=== PATIENT | male | born 1940 | race Caucasian/White ===

== ENCOUNTER 2022-05-05 01:40 | Outpatient (RCR) | payer MEDICARE, BC, SELFPAY ==
[2022-04-21] MEDS: Normal Saline Flush 10 ML SYR IVP (07:50)
[2022-04-21 08:18] LABS: Abs Immature Grans 0.01 10^3/uL (0.0-0.06); Absolute Basophil Count 0.05 10^3/uL (0.0-0.2); Absolute Eosinophil Count 0.28 10^3/uL (0.0-0.7); Absolute Lymphocyte Count 1.15 10^3/uL (1.2-3.4); Absolute Monocyte Count 0.38 10^3/uL (0.1-0.8); Absolute Neutrophil Count 3.74 10^3/uL (1.2-6.7); Basophils % 0.9; HCT 35.4 % (40.0-50.0); HGB 12.1 g/dL (13.5-17.5); Immature Grans % 0.2; Lymphocytes % 20.5; MCH 30.6 pg (27.0-33.0); MCHC 34.2 % (32.0-36.0); MCV 90 fL (80-95); MPV 10.6 fL (8.0-11.0); Monocytes % 6.8; Neutrophils % 66.6; Platelet Count 152 10^3/uL (130-400); RBC 3.95 10^6/uL (4.36-5.78); RDW 14.3 % (11.8-14.1); WBC 5.61 10^3/uL (4.4-10.8)
[2022-04-21 08:37] LABS: ALT 42 U/L (16-63); AST 22 U/L (15-37); Albumin 3.1 g/dL (3.4-5.0); Alkaline Phosphatase 231 U/L (46-116); Anion Gap 7.2 mmol/L (3-11); BUN 24 mg/dL (7-18); Bilirubin, Total 1.2 mg/dL (0.2-1.0); CO2 27.8 mmol/L (21.0-32.0); CREATININE 0.9 mg/dL (0.70-1.30); Calcium 8.5 mg/dL (8.5-10.1); Chloride 105 mmol/L (98-107); Glucose 179 mg/dL (74-106); Potassium 4.5 mmol/L (3.5-5.1); Sodium 140 mmol/L (136-145); Total Protein 6.4 g/dL (6.4-8.2)
[2022-04-23] MEDS: Heparin 500 UNITS/5 ML SYRINGE IV (11:00)
[2022-04-23] MEDS: Normal Saline Flush 10 ML SYR IVP (11:00)
[2022-04-24 13:58] LABS: CA 19-9 12 U/mL (<35)
[2022-05-05] MEDS: Normal Saline Flush 10 ML SYR IVP (07:41)
[2022-05-05 07:44] LABS: Abs Immature Grans 0.01 10^3/uL (0.0-0.06); Absolute Basophil Count 0.04 10^3/uL (0.0-0.2); Absolute Lymphocyte Count 0.94 10^3/uL (1.2-3.4); Absolute Monocyte Count 0.35 10^3/uL (0.1-0.8); Absolute Neutrophil Count 2.85 10^3/uL (1.2-6.7); Basophils % 0.9; Eosinophils % 4.6; HCT 33.8 % (40.0-50.0); HGB 11.5 g/dL (13.5-17.5); Immature Grans % 0.2; Lymphocytes % 21.4; MCH 30.7 pg (27.0-33.0); MCV 90 fL (80-95); MPV 9.5 fL (8.0-11.0); Neutrophils % 64.9; Platelet Count 143 10^3/uL (130-400); RBC 3.75 10^6/uL (4.36-5.78); RDW 13.5 % (11.8-14.1); RDW-SD 44.5 fL; WBC 4.39 10^3/uL (4.4-10.8)
[2022-05-05 08:01] LABS: ALT 45 U/L (16-63); AST 22 U/L (15-37); Albumin 3.2 g/dL (3.4-5.0); Alkaline Phosphatase 200 U/L (46-116); Anion Gap 8.9 mmol/L (3-11); BUN 23 mg/dL (7-18); Bilirubin, Total 0.9 mg/dL (0.2-1.0); CO2 24.1 mmol/L (21.0-32.0); Calcium 8.7 mg/dL (8.5-10.1); Chloride 108 mmol/L (98-107); Glucose 117 mg/dL (74-106); Potassium 4.2 mmol/L (3.5-5.1); Sodium 141 mmol/L (136-145); Total Protein 6.5 g/dL (6.4-8.2)
[2022-05-07] MEDS: Normal Saline Flush 10 ML SYR IVP (11:15)
[2022-05-07] MEDS: Heparin 500 UNITS/5 ML SYRINGE IV (11:15)
[2022-05-08 10:24] LABS: CA 19-9 8 U/mL (<35)
== END 2022-05-14 23:59 | disposition home or self-care (01) ==
LOC: INF 01:40
PROVIDERS: PCP Neuromusculoskeletal Medicine & OMM; Visit Provider Internal Medicine Hematology & Oncology
DX: C25.9 Malignant neoplasm of pancreas, unspecified (principal); Z45.2 Encounter for adjustment and management of vascular access device
CPT/HCPCS: 36415; 36591; 80053; 96523; 85025; 86301

== ENCOUNTER → 2022-06-02 09:07 | Outpatient (CLI) | payer MEDICARE, BC, SELFPAY ==
--- NOTE | 2022-06-02 | DI.US_ITS ---
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 DVT, M79.604. TECHNIQUE: Lower extremity venous ultrasound performed using grayscale, color-flow, and spectral Do ppler analysis. COMPARISON: No exams were available for comparison FINDINGS: The common femoral, femoral and popliteal veins demonstrate normal compressibility, augmentation, and color Doppler. The posterior tibial veins are patent. No saphenous vein thrombosis or other superfi cial venous thrombosis is seen. No hematoma or Eric's cyst is seen. IMPRESSION: Negative lower extremity ultrasound. No evidence of DVT. DATA REPOSITORY:
== END ==
PROVIDERS: PCP Neuromusculoskeletal Medicine & OMM; Visit Provider Internal Medicine Hematology & Oncology
DX: M79.604 Pain in right leg (principal)
CPT/HCPCS: 36591; 80053; 85025; 86301; 93971

== ENCOUNTER 2022-06-04 00:20 | Outpatient (RCR) | payer MEDICARE, BC, SELFPAY ==
[2022-05-19] MEDS: Normal Saline Flush 10 ML SYR IVP (08:05)
[2022-05-19 08:27] LABS: Abs Immature Grans 0.01 10^3/uL (0.0-0.06); Absolute Basophil Count 0.03 10^3/uL (0.0-0.2); Absolute Lymphocyte Count 1.03 10^3/uL (1.2-3.4); Absolute Monocyte Count 0.26 10^3/uL (0.1-0.8); Basophils % 1.6; Eosinophils % 5.4; HCT 31.7 % (40.0-50.0); HGB 11.1 g/dL (13.5-17.5); Immature Grans % 0.5; MCH 30.6 pg (27.0-33.0); MCV 87 fL (80-95); MPV 9.7 fL (8.0-11.0); Monocytes % 14.1; Neutrophils % 22.4; Platelet Count 145 10^3/uL (130-400); RBC 3.63 10^6/uL (4.36-5.78); RDW 13.2 % (11.8-14.1)
[2022-05-19 08:50] LABS: ALT 89 U/L (16-63); AST 42 U/L (15-37); Albumin 3.2 g/dL (3.4-5.0); Alkaline Phosphatase 266 U/L (46-116); Anion Gap 5.8 mmol/L (3-11); BUN 17 mg/dL (7-18); Bilirubin, Total 0.6 mg/dL (0.2-1.0); CO2 28.2 mmol/L (21.0-32.0); CREATININE 0.8 mg/dL (0.70-1.30); Calcium 8.1 mg/dL (8.5-10.1); Chloride 109 mmol/L (98-107); Glucose 131 mg/dL (74-106); Potassium 3.7 mmol/L (3.5-5.1); Sodium 143 mmol/L (136-145); Total Protein 6.3 g/dL (6.4-8.2); WBC 1.84 10^3/uL (4.4-10.8)
[2022-05-19 08:51] LABS: Absolute Neutrophil Count 0.41 10^3/uL (1.2-6.7)
[2022-05-19 09:03] LABS: Diff Comment Agrees w/ Instrument; Polychromasia Present
[2022-05-22 11:18] LABS: CA 19-9 <2 U/mL (<35)
[2022-06-02] MEDS: Normal Saline Flush 10 ML SYR IVP (07:41)
[2022-06-02 07:50] LABS: Abs Immature Grans 0.03 10^3/uL (0.0-0.06); Absolute Basophil Count 0.06 10^3/uL (0.0-0.2); Absolute Lymphocyte Count 1.29 10^3/uL (1.2-3.4); Absolute Monocyte Count 0.48 10^3/uL (0.1-0.8); Absolute Neutrophil Count 3.45 10^3/uL (1.2-6.7); Basophils % 1.1; Eosinophils % 3.6; HCT 34.3 % (40.0-50.0); HGB 11.3 g/dL (13.5-17.5); Immature Grans % 0.5; Lymphocytes % 23.4; MCH 30.2 pg (27.0-33.0); MCHC 32.9 % (32.0-36.0); MCV 92 fL (80-95); MPV 10.4 fL (8.0-11.0); Monocytes % 8.7; Neutrophils % 62.7; Platelet Count 191 10^3/uL (130-400); RBC 3.74 10^6/uL (4.36-5.78); RDW 13.6 % (11.8-14.1); RDW-SD 45.5 fL; WBC 5.51 10^3/uL (4.4-10.8)
[2022-06-02 08:04] LABS: ALT 52 U/L (16-63); AST 26 U/L (15-37); Alkaline Phosphatase 226 U/L (46-116); BUN 15 mg/dL (7-18); Bilirubin, Total 0.4 mg/dL (0.2-1.0); Chloride 109 mmol/L (98-107); Glucose 154 mg/dL (74-106); Sodium 143 mmol/L (136-145); Total Protein 6.1 g/dL (6.4-8.2)
[2022-06-04 10:10] VITALS: BP 142/55; PULSE 58; RESP 16; TEMP 36.1; O2SAT 97
[2022-06-04] MEDS: Heparin 500 UNITS/5 ML SYRINGE IV (10:15)
[2022-06-04] MEDS: Normal Saline Flush 10 ML SYR IVP (10:15)
[2022-06-05 12:09] LABS: CA 19-9 3 U/mL (<35)
== END 2022-06-14 23:59 | disposition home or self-care (01) ==
LOC: INF 00:20
PROVIDERS: PCP Neuromusculoskeletal Medicine & OMM; Visit Provider Internal Medicine Hematology & Oncology
DX: C25.9 Malignant neoplasm of pancreas, unspecified (principal); Z45.2 Encounter for adjustment and management of vascular access device
CPT/HCPCS: 36591; 80053; 96523; 85025; 86301

== ENCOUNTER 2022-06-18 04:27 | Outpatient (RCR) | payer MEDICARE, BC, SELFPAY ==
[2022-06-15 00:05] VITALS: BP 142/55; PULSE 58; RESP 16; TEMP 36.1
[2022-06-16] MEDS: Normal Saline Flush 10 ML SYR IVP (07:38)
[2022-06-16 07:43] LABS: Abs Immature Grans 0.03 10^3/uL (0.0-0.06); Absolute Basophil Count 0.06 10^3/uL (0.0-0.2); Absolute Eosinophil Count 0.35 10^3/uL (0.0-0.7); Absolute Lymphocyte Count 1.36 10^3/uL (1.2-3.4); Absolute Neutrophil Count 3.89 10^3/uL (1.2-6.7); Eosinophils % 5.7; HCT 36.3 % (40.0-50.0); HGB 12.2 g/dL (13.5-17.5); Immature Grans % 0.5; MCH 30.4 pg (27.0-33.0); MCHC 33.6 % (32.0-36.0); MCV 91 fL (80-95); MPV 10.1 fL (8.0-11.0); Monocytes % 8.1; Neutrophils % 62.7; Platelet Count 135 10^3/uL (130-400); RBC 4.01 10^6/uL (4.36-5.78); RDW 12.8 % (11.8-14.1); RDW-SD 41.9 fL; WBC 6.19 10^3/uL (4.4-10.8)
[2022-06-16 07:56] LABS: ALT 33 U/L (16-63); AST 18 U/L (15-37); Albumin 3.3 g/dL (3.4-5.0); Alkaline Phosphatase 169 U/L (46-116); Anion Gap 5.7 mmol/L (3-11); BUN 19 mg/dL (7-18); Bilirubin, Total 0.5 mg/dL (0.2-1.0); CO2 28.3 mmol/L (21.0-32.0); Calcium 8.5 mg/dL (8.5-10.1); Chloride 107 mmol/L (98-107); Estimated GFR 75.61 (mL/min/1.73m2); Glucose 124 mg/dL (74-106); Potassium 4.3 mmol/L (3.5-5.1); Sodium 141 mmol/L (136-145); Total Protein 6.7 g/dL (6.4-8.2)
[2022-06-18 09:23] VITALS: BP 127/54; PULSE 54; RESP 16; TEMP 36.3; O2SAT 95
[2022-06-18] MEDS: Normal Saline Flush 10 ML SYR IVP (09:26)
[2022-06-18] MEDS: Heparin 500 UNITS/5 ML SYRINGE IV (09:26)
[2022-06-26 14:36] LABS: CA 19-9 2 U/mL (<35)
== END 2022-07-14 23:59 | disposition home or self-care (01) ==
LOC: INF 04:27
PROVIDERS: PCP Neuromusculoskeletal Medicine & OMM; Visit Provider Internal Medicine Hematology & Oncology
DX: C25.9 Malignant neoplasm of pancreas, unspecified (principal); Z45.2 Encounter for adjustment and management of vascular access device
CPT/HCPCS: 36591; 80053; 96523; 85025; 86301

== ENCOUNTER 2022-09-01 00:59 | Outpatient (RCR) | payer MEDICARE, BC, SELFPAY ==
[2022-08-25] MEDS: Normal Saline Flush 10 ML SYR IVP (12:01)
[2022-08-25] MEDS: Heparin 500 UNITS/5 ML SYRINGE IV (12:02)
[2022-08-25 12:14] LABS: Abs Immature Grans 0.01 10^3/uL (0.0-0.06); Absolute Basophil Count 0.04 10^3/uL (0.0-0.2); Absolute Lymphocyte Count 1.12 10^3/uL (1.2-3.4); Absolute Monocyte Count 0.49 10^3/uL (0.1-0.8); Absolute Neutrophil Count 4.03 10^3/uL (1.2-6.7); Basophils % 0.7; Eosinophils % 1.7; HCT 34.9 % (40.0-50.0); HGB 11.4 g/dL (13.5-17.5); Immature Grans % 0.2; Lymphocytes % 19.3; MCH 29.5 pg (27.0-33.0); MCHC 32.7 % (32.0-36.0); MCV 90 fL (80-95); MPV 9.3 fL (8.0-11.0); Monocytes % 8.5; Neutrophils % 69.6; Platelet Count 228 10^3/uL (130-400); RBC 3.87 10^6/uL (4.36-5.78); RDW 12.3 % (11.8-14.1); RDW-SD 40.5 fL; WBC 5.79 10^3/uL (4.4-10.8)
[2022-08-25 12:30] LABS: ALT 76 U/L (16-63); AST 40 U/L (15-37); Albumin 3.1 g/dL (3.4-5.0); Alkaline Phosphatase 567 U/L (46-116); Anion Gap 4.5 mmol/L (3-11); BUN 14 mg/dL (7-18); Bilirubin, Total 0.4 mg/dL (0.2-1.0); CO2 31.5 mmol/L (21.0-32.0); Calcium 8.8 mg/dL (8.5-10.1); Chloride 103 mmol/L (98-107); Estimated GFR 75.61 (mL/min/1.73m2); Glucose 132 mg/dL (74-106); Potassium 4.2 mmol/L (3.5-5.1); Sodium 139 mmol/L (136-145); Total Protein 7.1 g/dL (6.4-8.2)
[2022-08-28 11:00] LABS: CA 19-9 <2 U/mL (<35)
[2022-09-01] MEDS: Normal Saline Flush 10 ML SYR IVP (11:53)
[2022-09-01] MEDS: Heparin 500 UNITS/5 ML SYRINGE IV (11:53)
[2022-09-01 12:17] LABS: ALT 134 U/L (16-63); AST 62 U/L (15-37); Albumin 3.2 g/dL (3.4-5.0); Alkaline Phosphatase 853 U/L (46-116); Anion Gap 8.8 mmol/L (3-11); BUN 17 mg/dL (7-18); Bilirubin, Total 0.5 mg/dL (0.2-1.0); CO2 29.2 mmol/L (21.0-32.0); Calcium 8.9 mg/dL (8.5-10.1); Chloride 101 mmol/L (98-107); Estimated GFR 75.61 (mL/min/1.73m2); Glucose 144 mg/dL (74-106); Potassium 3.9 mmol/L (3.5-5.1); Sodium 139 mmol/L (136-145); Total Protein 7.3 g/dL (6.4-8.2)
== END 2022-09-13 23:59 | disposition home or self-care (01) ==
LOC: INF 00:59
PROVIDERS: PCP Neuromusculoskeletal Medicine & OMM; Visit Provider Internal Medicine Hematology & Oncology
DX: C25.9 Malignant neoplasm of pancreas, unspecified (principal); Z45.2 Encounter for adjustment and management of vascular access device
CPT/HCPCS: 36591; 80053; 85025; 86301

== ENCOUNTER 2022-10-11 02:08 | Outpatient (RCR) | payer MEDICARE, BC, SELFPAY ==
[2022-09-15] MEDS: Normal Saline Flush 10 ML SYR IVP (10:08)
[2022-09-15] MEDS: Heparin 500 UNITS/5 ML SYRINGE IV (10:09)
[2022-09-15 10:25] LABS: Abs Immature Grans 0.04 10^3/uL (0.0-0.06); Absolute Basophil Count 0.04 10^3/uL (0.0-0.2); Absolute Eosinophil Count 0.11 10^3/uL (0.0-0.7); Absolute Lymphocyte Count 1.22 10^3/uL (1.2-3.4); Absolute Neutrophil Count 4.72 10^3/uL (1.2-6.7); Basophils % 0.6; Eosinophils % 1.7; HCT 35.7 % (40.0-50.0); HGB 11.9 g/dL (13.5-17.5); Immature Grans % 0.6; Lymphocytes % 18.7; MCH 29.8 pg (27.0-33.0); MCHC 33.3 % (32.0-36.0); MCV 89 fL (80-95); MPV 9.3 fL (8.0-11.0); Monocytes % 6.1; Neutrophils % 72.3; Platelet Count 206 10^3/uL (130-400); RDW 12.3 % (11.8-14.1); RDW-SD 40.1 fL; WBC 6.53 10^3/uL (4.4-10.8)
[2022-09-15 10:43] LABS: ALT 63 U/L (16-63); AST 38 U/L (15-37); Albumin 3.2 g/dL (3.4-5.0); Alkaline Phosphatase 436 U/L (46-116); Anion Gap 6.1 mmol/L (3-11); BUN 21 mg/dL (7-18); Bilirubin, Total 0.3 mg/dL (0.2-1.0); CO2 27.9 mmol/L (21.0-32.0); CREATININE 0.9 mg/dL (0.70-1.30); Calcium 8.8 mg/dL (8.5-10.1); Chloride 104 mmol/L (98-107); Glucose 146 mg/dL (74-106); Sodium 138 mmol/L (136-145)
[2022-09-18 09:26] LABS: CA 19-9 <2 U/mL (<35)
[2022-09-22] MEDS: Normal Saline Flush 10 ML SYR IVP (10:02)
[2022-09-22 10:17] LABS: Abs Immature Grans 0.02 10^3/uL (0.0-0.06); Absolute Basophil Count 0.05 10^3/uL (0.0-0.2); Absolute Eosinophil Count 0.18 10^3/uL (0.0-0.7); Absolute Lymphocyte Count 1.31 10^3/uL (1.2-3.4); Absolute Monocyte Count 0.45 10^3/uL (0.1-0.8); Absolute Neutrophil Count 4.47 10^3/uL (1.2-6.7); Basophils % 0.8; Eosinophils % 2.8; HCT 37.9 % (40.0-50.0); HGB 12.4 g/dL (13.5-17.5); Immature Grans % 0.3; Lymphocytes % 20.2; MCHC 32.7 % (32.0-36.0); MCV 89 fL (80-95); MPV 9.4 fL (8.0-11.0); Monocytes % 6.9; Platelet Count 214 10^3/uL (130-400); RBC 4.28 10^6/uL (4.36-5.78); RDW 12.5 % (11.8-14.1); RDW-SD 40.5 fL; WBC 6.48 10^3/uL (4.4-10.8)
[2022-09-22 10:33] LABS: ALT 74 U/L (16-63); AST 40 U/L (15-37); Albumin 3.3 g/dL (3.4-5.0); Alkaline Phosphatase 447 U/L (46-116); BUN 21 mg/dL (7-18); Bilirubin, Total 0.3 mg/dL (0.2-1.0); Chloride 107 mmol/L (98-107); Estimated GFR 75.61 (mL/min/1.73m2); Glucose 121 mg/dL (74-106); Potassium 4.3 mmol/L (3.5-5.1); Sodium 141 mmol/L (136-145); Total Protein 7.2 g/dL (6.4-8.2)
[2022-09-25 11:10] LABS: CA 19-9 8 U/mL (<35)
[2022-10-11] MEDS: Normal Saline Flush 10 ML SYR IVP (11:56)
[2022-10-11 12:04] LABS: Absolute Basophil Count 0.05 10^3/uL (0.0-0.2); Absolute Eosinophil Count 0.23 10^3/uL (0.0-0.7); Absolute Lymphocyte Count 1.45 10^3/uL (1.2-3.4); Absolute Monocyte Count 0.44 10^3/uL (0.1-0.8); Absolute Neutrophil Count 1.27 10^3/uL (1.2-6.7); Basophils % 1.5; Eosinophils % 6.7; HCT 35.5 % (40.0-50.0); HGB 11.6 g/dL (13.5-17.5); Lymphocytes % 42.2; MCH 28.4 pg (27.0-33.0); MCHC 32.7 % (32.0-36.0); MCV 87 fL (80-95); MPV 9.3 fL (8.0-11.0); Monocytes % 12.8; Neutrophils % 36.8; Platelet Count 218 10^3/uL (130-400); RBC 4.09 10^6/uL (4.36-5.78); RDW 12.8 % (11.8-14.1); RDW-SD 40.1 fL; WBC 3.44 10^3/uL (4.4-10.8)
[2022-10-11 12:22] LABS: ALT 52 U/L (16-63); AST 32 U/L (15-37); Alkaline Phosphatase 456 U/L (46-116); Anion Gap 6.8 mmol/L (3-11); BUN 14 mg/dL (7-18); Bilirubin, Total 0.3 mg/dL (0.2-1.0); CO2 27.2 mmol/L (21.0-32.0); CREATININE 0.9 mg/dL (0.70-1.30); Calcium 8.5 mg/dL (8.5-10.1); Chloride 111 mmol/L (98-107); Glucose 139 mg/dL (74-106); Potassium 3.6 mmol/L (3.5-5.1); Sodium 145 mmol/L (136-145); Total Protein 6.5 g/dL (6.4-8.2)
[2022-10-13 10:34] LABS: CA 19-9 8 U/mL (<35)
== END 2022-10-14 23:59 | disposition home or self-care (01) ==
LOC: INF 02:08
PROVIDERS: PCP Neuromusculoskeletal Medicine & OMM; Visit Provider Internal Medicine Hematology & Oncology
DX: C25.9 Malignant neoplasm of pancreas, unspecified (principal); Z45.2 Encounter for adjustment and management of vascular access device
CPT/HCPCS: 36591; 80053; 85025; 86301

== ENCOUNTER 2022-11-10 00:54 | Outpatient (RCR) | payer MEDICARE, BC, SELFPAY ==
[2022-10-27] MEDS: Normal Saline Flush 10 ML SYR IVP (11:52)
[2022-10-27 11:59] LABS: Absolute Basophil Count 0.03 10^3/uL (0.0-0.2); Absolute Eosinophil Count 0.22 10^3/uL (0.0-0.7); Absolute Lymphocyte Count 1.15 10^3/uL (1.2-3.4); Absolute Monocyte Count 0.41 10^3/uL (0.1-0.8); Absolute Neutrophil Count 1.25 10^3/uL (1.2-6.7); Eosinophils % 7.2; HCT 34.9 % (40.0-50.0); HGB 11.6 g/dL (13.5-17.5); Lymphocytes % 37.6; MCH 28.4 pg (27.0-33.0); MCHC 33.2 % (32.0-36.0); MCV 85 fL (80-95); MPV 9.8 fL (8.0-11.0); Monocytes % 13.4; Neutrophils % 40.8; Platelet Count 196 10^3/uL (130-400); RBC 4.09 10^6/uL (4.36-5.78); RDW 13.3 % (11.8-14.1); RDW-SD 41.1 fL; WBC 3.06 10^3/uL (4.4-10.8)
[2022-10-27 12:14] LABS: ALT 42 U/L (16-63); AST 30 U/L (15-37); Albumin 3.2 g/dL (3.4-5.0); Alkaline Phosphatase 389 U/L (46-116); BUN 13 mg/dL (7-18); Bilirubin, Total 0.4 mg/dL (0.2-1.0); CREATININE 0.9 mg/dL (0.70-1.30); Calcium 8.7 mg/dL (8.5-10.1); Chloride 109 mmol/L (98-107); Glucose 111 mg/dL (74-106); Potassium 3.5 mmol/L (3.5-5.1); Sodium 144 mmol/L (136-145); Total Protein 6.8 g/dL (6.4-8.2)
[2022-10-30 10:11] LABS: CA 19-9 4 U/mL (<35)
[2022-11-10] MEDS: Normal Saline Flush 10 ML SYR IVP (12:38)
[2022-11-10 12:48] LABS: Absolute Basophil Count 0.06 10^3/uL (0.0-0.2); Absolute Eosinophil Count 0.14 10^3/uL (0.0-0.7); Absolute Lymphocyte Count 1.37 10^3/uL (1.2-3.4); Absolute Monocyte Count 0.46 10^3/uL (0.1-0.8); Absolute Neutrophil Count 1.99 10^3/uL (1.2-6.7); Basophils % 1.5; Eosinophils % 3.5; HCT 33.5 % (40.0-50.0); HGB 11.2 g/dL (13.5-17.5); Lymphocytes % 34.1; MCH 28.6 pg (27.0-33.0); MCHC 33.4 % (32.0-36.0); MCV 86 fL (80-95); MPV 10.3 fL (8.0-11.0); Monocytes % 11.4; Neutrophils % 49.5; Platelet Count 141 10^3/uL (130-400); RBC 3.92 10^6/uL (4.36-5.78); RDW 13.8 % (11.8-14.1); RDW-SD 42.2 fL; WBC 4.02 10^3/uL (4.4-10.8)
[2022-11-10 13:02] LABS: ALT 45 U/L (16-63); AST 37 U/L (15-37); Alkaline Phosphatase 375 U/L (46-116); Anion Gap 9.4 mmol/L (3-11); BUN 13 mg/dL (7-18); Bilirubin, Total 0.4 mg/dL (0.2-1.0); CO2 25.6 mmol/L (21.0-32.0); Calcium 8.4 mg/dL (8.5-10.1); Chloride 110 mmol/L (98-107); Estimated GFR 75.61 (mL/min/1.73m2); Glucose 114 mg/dL (74-106); Potassium 3.5 mmol/L (3.5-5.1); Sodium 145 mmol/L (136-145); Total Protein 6.3 g/dL (6.4-8.2)
[2022-11-13 10:51] LABS: CA 19-9 5 U/mL (<35)
== END 2022-11-14 23:59 | disposition home or self-care (01) ==
LOC: INF 00:54
PROVIDERS: PCP Neuromusculoskeletal Medicine & OMM; Visit Provider Internal Medicine Hematology & Oncology
DX: C25.9 Malignant neoplasm of pancreas, unspecified (principal); Z45.2 Encounter for adjustment and management of vascular access device
CPT/HCPCS: 36591; 80053; 85025; 86301

== ENCOUNTER 2022-12-08 01:23 | Outpatient (RCR) | payer MEDICARE, BC, SELFPAY ==
[2022-11-24] MEDS: Normal Saline Flush 10 ML SYR IVP (09:32)
[2022-11-24 09:45] LABS: Abs Immature Grans 0.01 10^3/uL (0.0-0.06); Absolute Basophil Count 0.04 10^3/uL (0.0-0.2); Absolute Eosinophil Count 0.16 10^3/uL (0.0-0.7); Absolute Lymphocyte Count 0.95 10^3/uL (1.2-3.4); Absolute Monocyte Count 0.37 10^3/uL (0.1-0.8); Absolute Neutrophil Count 1.88 10^3/uL (1.2-6.7); Basophils % 1.2; Eosinophils % 4.7; HCT 31.8 % (40.0-50.0); HGB 10.4 g/dL (13.5-17.5); Immature Grans % 0.3; Lymphocytes % 27.9; MCH 27.7 pg (27.0-33.0); MCHC 32.7 % (32.0-36.0); MCV 85 fL (80-95); MPV 10.1 fL (8.0-11.0); Monocytes % 10.9; Platelet Count 130 10^3/uL (130-400); RBC 3.75 10^6/uL (4.36-5.78); RDW 14.4 % (11.8-14.1); RDW-SD 43.8 fL; WBC 3.41 10^3/uL (4.4-10.8)
[2022-11-24 10:06] LABS: ALT 37 U/L (16-63); AST 31 U/L (15-37); Alkaline Phosphatase 335 U/L (46-116); Anion Gap 10.5 mmol/L (3-11); BUN 16 mg/dL (7-18); Bilirubin, Total 0.5 mg/dL (0.2-1.0); CO2 25.5 mmol/L (21.0-32.0); Calcium 8.3 mg/dL (8.5-10.1); Chloride 107 mmol/L (98-107); Estimated GFR 75.61 (mL/min/1.73m2); Glucose 138 mg/dL (74-106); Potassium 3.1 mmol/L (3.5-5.1); Sodium 143 mmol/L (136-145); Total Protein 6.2 g/dL (6.4-8.2)
[2022-11-28 14:47] LABS: CA 19-9 3 U/mL (<35)
== END 2022-12-12 23:59 | disposition home or self-care (01) ==
LOC: INF 01:23
PROVIDERS: PCP Neuromusculoskeletal Medicine & OMM; Visit Provider Internal Medicine Hematology & Oncology
DX: C25.9 Malignant neoplasm of pancreas, unspecified (principal); Z45.2 Encounter for adjustment and management of vascular access device
CPT/HCPCS: 36591; 80053; 85025; 86301

== ENCOUNTER 2023-01-05 01:53 | Outpatient (RCR) | payer MEDICARE, BC, SELFPAY ==
[2022-12-22] MEDS: Normal Saline Flush 10 ML SYR IVP (08:43)
[2022-12-22 08:49] LABS: Abs Immature Grans 0.03 10^3/uL (0.0-0.06); Absolute Basophil Count 0.06 10^3/uL (0.0-0.2); Absolute Eosinophil Count 0.31 10^3/uL (0.0-0.7); Absolute Lymphocyte Count 1.56 10^3/uL (1.2-3.4); Absolute Monocyte Count 0.39 10^3/uL (0.1-0.8); Absolute Neutrophil Count 3.38 10^3/uL (1.2-6.7); Eosinophils % 5.4; HCT 33.2 % (40.0-50.0); HGB 10.7 g/dL (13.5-17.5); Immature Grans % 0.5; Lymphocytes % 27.2; MCH 29.2 pg (27.0-33.0); MCHC 32.2 % (32.0-36.0); MCV 91 fL (80-95); MPV 9.3 fL (8.0-11.0); Monocytes % 6.8; Neutrophils % 59.1; Platelet Count 251 10^3/uL (130-400); RBC 3.66 10^6/uL (4.36-5.78); RDW 14.4 % (11.8-14.1); RDW-SD 47.7 fL; WBC 5.73 10^3/uL (4.4-10.8)
[2022-12-22 09:16] LABS: ALT 23 U/L (16-63); AST 19 U/L (15-37); Alkaline Phosphatase 223 U/L (46-116); Anion Gap 9.7 mmol/L (3-11); BUN 20 mg/dL (7-18); Bilirubin, Total 0.3 mg/dL (0.2-1.0); CO2 26.3 mmol/L (21.0-32.0); Calcium 8.5 mg/dL (8.5-10.1); Chloride 107 mmol/L (98-107); Estimated GFR 75.14 (mL/min/1.73m2); Glucose 145 mg/dL (74-106); Potassium 4.2 mmol/L (3.5-5.1); Sodium 143 mmol/L (136-145); Total Protein 6.7 g/dL (6.4-8.2)
[2022-12-25 09:17] LABS: CA 19-9 5 U/mL (<35)
[2023-01-05] MEDS: Normal Saline Flush 10 ML SYR IVP (09:13)
[2023-01-05 09:14] LABS: Abs Immature Grans 0.02 10^3/uL (0.0-0.06); Absolute Basophil Count 0.03 10^3/uL (0.0-0.2); Absolute Eosinophil Count 0.19 10^3/uL (0.0-0.7); Absolute Lymphocyte Count 0.97 10^3/uL (1.2-3.4); Absolute Monocyte Count 0.34 10^3/uL (0.1-0.8); Absolute Neutrophil Count 3.34 10^3/uL (1.2-6.7); Basophils % 0.6; Eosinophils % 3.9; HCT 32.2 % (40.0-50.0); HGB 10.6 g/dL (13.5-17.5); Immature Grans % 0.4; Lymphocytes % 19.8; MCH 29.1 pg (27.0-33.0); MCHC 32.9 % (32.0-36.0); MCV 89 fL (80-95); MPV 9.8 fL (8.0-11.0); Neutrophils % 68.3; Platelet Count 145 10^3/uL (130-400); RBC 3.64 10^6/uL (4.36-5.78); RDW 13.7 % (11.8-14.1); RDW-SD 43.8 fL; WBC 4.89 10^3/uL (4.4-10.8)
[2023-01-05 09:44] LABS: ALT 30 U/L (16-63); AST 20 U/L (15-37); Alkaline Phosphatase 215 U/L (46-116); Anion Gap 7.9 mmol/L (3-11); BUN 18 mg/dL (7-18); Bilirubin, Total 0.2 mg/dL (0.2-1.0); CO2 24.1 mmol/L (21.0-32.0); Calcium 8.6 mg/dL (8.5-10.1); Chloride 110 mmol/L (98-107); Estimated GFR 75.14 (mL/min/1.73m2); Glucose 105 mg/dL (74-106); Potassium 3.8 mmol/L (3.5-5.1); Sodium 142 mmol/L (136-145); Total Protein 6.6 g/dL (6.4-8.2)
[2023-01-08 10:12] LABS: CA 19-9 <2 U/mL (<35)
== END 2023-01-12 23:59 | disposition home or self-care (01) ==
LOC: INF 01:53
PROVIDERS: PCP Neuromusculoskeletal Medicine & OMM; Visit Provider Internal Medicine Hematology & Oncology
DX: C25.9 Malignant neoplasm of pancreas, unspecified (principal); Z45.2 Encounter for adjustment and management of vascular access device
CPT/HCPCS: 36591; 80053; 85025; 86301

== ENCOUNTER 2023-01-19 01:34 | Outpatient (RCR) | payer MEDICARE, BC, SELFPAY ==
[2023-01-19] MEDS: Normal Saline Flush 10 ML SYR IVP (08:47)
[2023-01-19 09:10] LABS: Abs Immature Grans 0.01 10^3/uL (0.0-0.06); Absolute Basophil Count 0.05 10^3/uL (0.0-0.2); Absolute Eosinophil Count 0.14 10^3/uL (0.0-0.7); Absolute Lymphocyte Count 1.15 10^3/uL (1.2-3.4); Absolute Monocyte Count 0.35 10^3/uL (0.1-0.8); Absolute Neutrophil Count 2.32 10^3/uL (1.2-6.7); Basophils % 1.2; Eosinophils % 3.5; HGB 10.9 g/dL (13.5-17.5); Immature Grans % 0.2; Lymphocytes % 28.6; MCH 29.1 pg (27.0-33.0); MCV 88 fL (80-95); MPV 10.2 fL (8.0-11.0); Monocytes % 8.7; Neutrophils % 57.8; Platelet Count 123 10^3/uL (130-400); RBC 3.74 10^6/uL (4.36-5.78); RDW 13.7 % (11.8-14.1); RDW-SD 43.9 fL; WBC 4.02 10^3/uL (4.4-10.8)
[2023-01-19 09:45] LABS: Vitamin D 25 Total 27.7 ng/mL (30-100)
[2023-01-19 09:49] LABS: ALT 56 U/L (16-63); AST 43 U/L (15-37); Albumin 3.2 g/dL (3.4-5.0); Alkaline Phosphatase 255 U/L (46-116); Anion Gap 8.5 mmol/L (3-11); BUN 19 mg/dL (7-18); Bilirubin, Total 0.4 mg/dL (0.2-1.0); CO2 27.5 mmol/L (21.0-32.0); Calcium 8.4 mg/dL (8.5-10.1); Chloride 109 mmol/L (98-107); Estimated GFR 75.14 (mL/min/1.73m2); Folate > 20.0 ng/mL (8.6-20.0); Glucose 108 mg/dL (74-106); Sodium 145 mmol/L (136-145); Total Protein 6.6 g/dL (6.4-8.2); Vitamin B12 636 pg/mL (193-986)
[2023-01-22 12:54] LABS: CA 19-9 <2 U/mL (<35)
[2023-01-22 14:35] LABS: Vitamin E, Serum 8.1 mg/L (5.5 - 17.0)
[2023-01-23 11:21] LABS: Free Retinol (Vitamin A) 38.4 mcg/dL (32.5-78.0)
[2023-01-23 15:30] LABS: Thiamine (Vitamin B1), WB 91 nmol/L (70-180)
== END 2023-02-11 23:59 | disposition home or self-care (01) ==
LOC: INF 01:34
PROVIDERS: PCP Neuromusculoskeletal Medicine & OMM; Visit Provider Internal Medicine Hematology & Oncology
DX: E55.9 Vitamin D deficiency, unspecified (principal); C25.0 Malignant neoplasm of head of pancreas; D64.9 Anemia, unspecified; Z45.2 Encounter for adjustment and management of vascular access device
CPT/HCPCS: 36591; 80053; 82306; 82607; 82746; 84425; 84446; 84590; 85025; 86301